=== PATIENT | male | born 1950 | race Caucasian/White ===

== ENCOUNTER 2018-07-03 10:19 | Outpatient (CLI) | payer MEDICARE ==
--- NOTE | 2018-07-03 13:48 | CT ---
CTA OF THE ABDOMEN AND PELVIS WITH AND WITHOUT IV CONTRAST: INDICATION: History of abdominal aortic aneurysm status post aortic stenting. TECHNIQUE: Multiple CTA images were obtained of the abdomen and pelvis with and without contrast utilizing IV co ntrast and 3D reformatted imaging. Axial, coronal, and sagittal reformatted images were constructed from the raw data. Comparisons are made with the prior CT of the abdomen and pelvis dated 06/04/2016 and a CTA of the abdomen and pelvis dated 10/19/2013. FINDINGS: Lung bases are clear. There is fatty infiltration of the liver. The spleen, adrenal glands, and pancreas appear within nor mal limits. There is a stable right renal cyst. No hydronephrosis is evident. No retroperitoneal l ymphadenopathy or free fluid is evident. There is scattered diverticula involving the colon without evidence of active diverticulitis. The pr ostate is enlarged. Mild wall thickening involving the bladder is stable-appearing. There is scattered degenerative and osteoarthritic change. No suspicious osteolytic osteoblastic les ion is identified. VASCULATURE: The aortobiiliac endograft stent is unchanged in position. The stent lumen appears patent. There is some mild eccentric mural thrombus seen within the proximal aspect of the sent as well as in the dis [place] aspect of the left common iliac limb. The excluded aneurysmal sac is unchanged in size measuring 5.2 x 5.4 cm in its greatest mediolateral and AP dimensions respectively. Mild narrowing involving the left proximal renal artery is stable with mild post stenotic dilatation. The SMA and celiac major ry origins are patent. The left gastric artery origin, which is a normal variant, is patent. The co mmon hepatic artery originates off of the celiac and feeds only the left hepatic artery. The right h epatic artery originates off the SMA, which is a normal variant. There is moderate atherosclerotic i rregularity involving the iliac vasculature. 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 The external iliac vascular demonstrates irregularity but appears stable. IMPRESSION: 1. Patent aortobiiliac endograft stent. The excluded aneurysmal sac is stable in size. 2. Stable mild narrowing of the proximal left renal artery. 3. 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 4. Other chronic findings as above. POS: [facility]
== END 2018-07-03 10:20 | disposition home or self-care (01) ==
LOC: BICCT 10:19
PROVIDERS: ATTEND Thoracic Surgery (Cardiothoracic Vascular Surgery)
DX: I71.4 Abdominal aortic aneurysm, without rupture (principal); I70.1 Atherosclerosis of renal artery; I70.8 Atherosclerosis of other arteries
CPT/HCPCS: 74174; 82565